=== PATIENT | female | born 1995 | race Caucasian/White ===

== ENCOUNTER 2021-06-03 11:04 | Emergency (ER) | payer SELFPAY ==
[~2021-06-03] VITALS: Ht 154.9 cm; Wt 65.9 kg
[2021-06-03 11:32] VITALS: TEMP 98.5
[2021-06-03 12:10] LABS: STREP SCREEN POSITIVE
[2021-06-03] MEDS ORDERED: AMOXICILLIN 50500 MG PO (12:34)
[2021-06-03] MEDS ORDERED: MAGIC MOUTH PO (12:38)
[2021-06-03 13:47] VITALS: BP 101/50; PULSE 68
== END 2021-06-03 13:55 | disposition home or self-care (01) ==
LOC: COL.ER 11:04
PROVIDERS: Nurse Practitioner Primary Care
DX: J03.00 Acute streptococcal tonsillitis, unspecified (principal); Z20.822 Contact with and (suspected) exposure to COVID-19

== ENCOUNTER → 2022-05-03 | Outpatient (CLI) | payer SELFPAY ==
[~2022-05-03] MED LIST: AMOXICILLIN 50500 MG PO; MAGIC MOUTH PO
== END ==
LOC: COL.RAD 12:00
DX: N93.9 Abnormal uterine and vaginal bleeding, unspecified (principal)